=== PATIENT | male | born 1940 | race Caucasian/White ===

== ENCOUNTER 2019-01-15 00:03 | Inpatient (IN) ==
[2019-01-15 01:27] LABS: BASO# 0.09 X1000 (0.0-0.2); BASO% 1.3 % (0.0-0.8); EOS# 0.44 X1000 (0.0-0.7); EOS% 6.1 % (0.0-10.0); HEMATOCRIT 40.9 % (42.0-52.0); HEMOGLOBIN 14.7 g/dL (14.0-18.0); IMM GRAN# 0.02 X1000 (0.0-0.04); IMM GRAN% 0.3 % (0.0-0.5); LYMPH# 2.44 X1000 (1.2-3.4); LYMPH% 33.9 % (20.5-51.1); MCH 32.6 PG (27-31); MCHC 35.9 g/dL (33-37); MCV 90.7 FL (81-99); MONO# 0.79 X1000 (0.11-0.59); MPV 9.2 FL (7.4-10.4); NEUT# 3.41 X1000 (1.4-6.5); NEUT% 47.4 % (42.2-75.2); PLT 228 X1000 (130-400); RBC 4.51 XMIL (4.7-6.1); RDW 13.6 % (11.5-14.5); WBC 7.19 X1000 (4.8-10.8)
[2019-01-15] MEDS ORDERED: CARDIZEM IV ONE (03:10)
[2019-01-15 03:31] LABS: ALBUMIN 4.4 g/dL (3.5-5.0); ALKALINE PHOSPHATASE 77 U/L (32-122); BUN 8 mg/dL (8-22); CK PROFILE 104 U/L (24-204); CREATININE 0.8 mg/dL (0.7-1.2); ESTIMATED GFR > 60; GLUCOSE 100 mg/dL (70-104); GOT 43 U/L (10-34); GPT 28 U/L (10-44); TCO2 25 mmol/L (25-35); TOTAL PROTEIN 7.7 g/dL (6.3-8.3)
[2019-01-15 03:37] LABS: CALCIUM 8.6 mg/dL (8.8-10.2); CHLORIDE 92 mmol/L (98-107); POTASSIUM 4.3 mmol/L (3.5-5.1); SODIUM 135 mmol/L (136-145)
[2019-01-15 03:38] LABS: AGAP 18; COSMO 269
--- NOTE | 2019-01-15 03:52 | PROVIDER DOCUMENTATION ---
This chart was entered by Maria Esther Perez Scribe, acting as scribe for Shonda Moreno MD. HPI-General Adult - General Chief Complaint: Dizziness Stated Complaint: dizzy Time Seen by Provider: 01/15/19 00:40 Source: patient Allergies/Adverse Reactions: Patient Allergies Allergy/AdvReac Type Severity Reaction Status Date / Time No Known Allergies Allergy Verified 01/15/19 00:15 Home Medications: Home Medication List Medication Instructions Recorded Confirmed Last Taken Type Aspirin 325 mg PO DAILY tablet 08/07/18 Unknown Rx - History of Present Illness -Gen Adult Nature of Presenting Problems: 78 yom c/o dizziness when standing. pt has hx of afib and dementia. pt has no other complaints. Review of Systems - Adult - REVIEW OF SYSTEMS - ADULT Constitutional: reports: no symptoms reported Eyes: reports: no symptoms reported Ears, Nose, Mouth & Throat: reports: no symptoms reported Cardiovascular: reports: no symptoms reported Respiratory: reports: no symptoms reported Gastrointestinal: reports: no symptoms reported Genitourinary: reports: no symptoms reported Musculoskeletal: reports: no symptoms reported Integumentary: reports: no symptoms reported Neurological: reports: see HPI, dizziness/vertigo. denies: ataxia, headache/migraines, loss of balance Psychiatric: reports: no symptoms reported Endocrine: reports: no symptoms reported Hematologic/Lymphatic: reports: no symptoms reported Allergic/Immunologic: reports: no symptoms reported All Other Systems: Reviewed and Negative Past History - Adult - PAST MEDICAL HISTORY-ADULT Review of Records: reports: Old Records Reviewed, Nursing Assessment Review, Medications Reviewed, Social history reviewed & non-contributory. Major Childhood Illnesses: reports: denies history Cardiovascular: reports: A-Fib Respiratory: reports: denies history Gastrointestinal: reports: denies history Obstetrical/Gynecological: reports: denies history Genitourinary: reports: denies history Musculoskeletal: reports: denies history Neurological: reports: dementia Endocrine/Immune: reports: denies history Other Conditions: reports: denies history - PRIOR SURGERIES/PROCEDURES Surgical/Procedure History: reports: reviewed, not pertinent - IMMUNIZATION STATUS Childhood Immunizations: See Nurse Assessment Flu Vaccine: See Nurse Assessment - FAMILY HISTORY Family History: reviewed, not pertinent - SOCIAL HISTORY Smoking: cigarettes, less than 1 pack/day Substance Use: alcohol Physical Exam-General - PHYSICAL EXAM-ADULT Initial Vital Signs Reviewed: Yes - CONSTITUTIONAL General Appearance: appears well, alert, no apparent distress - EYES Eyes: PERRL/EOMI, pink conjunctivae - HEAD, EARS, NOSE, MOUTH & THROAT HENMT: normocephalic/atraumatic, moist mucous membranes, normal ENT inspection - NECK Neck: non-tender, full range of motion, supple, normal inspection - RESPIRATORY Respiratory: chest non-tender, lungs clear, normal breath sounds - CARDIOVASCULAR Cardiovascular: normal peripheral pulses, regular rate, rhythm - GASTROINTESTINAL (ABDOMEN) Abdominal Exam: normal bowel sounds, non tender, soft - MUSCULOSKELETAL Back Exam: normal inspection, no CVA tenderness, no vertebral tenderness Extremity: normal range of motion, non-tender, normal inspection Peripheral Pulses: radial (R): 2+, radial (L): 2+ - SKIN Integumentary: normal color, normal turgor, warm/dry - NEUROLOGIC Neurologic: tack puller machine II-XII nml as tested, grossly normal, no motor/sensory deficits - PSYCHIATRIC Psych/Mental Status: normal mood/affect, normal thought content, normal thought process. negative: oriented x 3 (pt is oriented to person and place but not disoriented.) Progress - PLAN OF CARE/RESULTS Progress/Plan/Lab Results: Vital Signs - 8 hr 01/15/19 00:11 01/15/19 01:18 Temperature 98.0 F Pulse Rate 125 H Pulse Rate [Sitting] 113 H Pulse Rate [Standing] 130 H Pulse Rate [Supine] 107 H Respiratory Rate 16 Blood Pressure 121/73 Blood Pressure [Sitting] 123/75 Blood Pressure [Standing] 100/74 Blood Pressure [Supine] 125/92 O2 Sat by Pulse Oximetry 92 L Orders Category Date Time Status Orthostatic Vital Signs NOW Care 01/15/19 00:41 Active CHEST-1 VIEW [RAD] Stat Exams 01/15/19 00:[address] HEAD W/O CONTRAST [CT] Stat Exams 01/15/19 00:42 Ordered CBC WITH ELECTRONIC DIFF [HEME] Stat Lab 01/15/19 01:17 Ordered CK PROFILE [SP CHEM] Stat Lab 01/15/19 01:17 Ordered COMPREHENSIVE METABOLIC PANEL [CHEM] Stat Lab 01/15/19 01:17 Ordered TROPONIN T Stat Lab 01/15/19 01:17 Ordered Result Diagrams: 01/15/19 01:09 01/15/19 01:09 - EKG 1 Time of EKG reading by physician:: 01:10 EKG Read and Signed by:: Shonda Moreno EKG Interpretation (*Must complete 3 of following elements*): Abnormal Rate: 96 Rhythm: afib [place]: normal QRS: normal ST Wave: normal - CONSULTS/PCP/HOSPITALIST Notification #1 *Consult/PCP/Hospitalist*: DrGarcia Time Discussed: 03:50 Consult Disposition: Admit Departure - Departure Date of Disposition Decision: 01/15/19 Time of Disposition Decision: 03:51 DIAGNOSIS: Atrial fibrillation with RVR Disposition: ADMITTED INPATIENT 09 Certified Medical Emergency: Emergent Condition: Stable Referrals and Follow-Ups: None,PCP [Primary Care Provider] - - Critical Care Note This patient required my direct & personal management of CC.: No Attestation - Physician/ MITRA Attestation Patient care was provided by Advanced Practice Provider:: No The physician spent face to face time with patient:: Yes Advanced Practice Provider documentation review:: Supervising physician onsite and consulted in the evaluation and care of this patient. The physician did have a face to face encounter with the patient. This chart was documented by the indicated scribe, (Maria Esther Perez Scribe) and accurately reflects the services I performed and decisions made by me, Shonda Moreno MD, as attested by the provider's signature.
--- NOTE | 2019-01-15 06:47 | Diag Imaging Result Doc PS360 ---
CHEST-1 VIEW - 01/15/2019 INDICATION: dizziness COMPARISON: 08/05/2018 FINDINGS: There is an increasing focal opacity in the right lung base. There is COPD. Heart size and pulmonary vascularity is normal. No pneumothorax or pleural effusion. IMPRESSION: Increasing chronic opacity in the right lung base. Appearance is suspicious. Chest CT is recommended. Electronically signed by Luke Chavez 01/15/2019 6:45 AM
--- NOTE | 2019-01-15 06:52 | Diag Imaging Result Doc PS360 ---
CT HEAD W/O CONTRAST - 01/15/2019 INDICATION: dizziness COMPARISON: 08/06/2018 FINDINGS: There is a very small, low density subdural hemorrhage in the left frontal region. This measures only about 4 mm. This is new from prior. There is some minimal midline shift to the left. Stable cerebral atrophy and rather advanced chronic microvascular disease. There is diffuse sinusitis. The mastoids and middle ears are clear. IMPRESSION: 1. Small low density left frontal subdural hematoma likely subacute to chronic. 2. Diffuse sinusitis. This exam was performed using automated exposure control, adjustment of mA or kV according to patient size, and/or use of iterative reconstruction technique Electronically signed by Luke Cahvez 01/15/2019 6:49 AM
--- NOTE | 2019-01-15 10:48 | Diag Imaging Result Doc PS360 ---
CT THORAX W/CONTRAST - 01/15/2019 INDICATION: Eval susp. area in lung per CXR COMPARISON: Previous chest x-rays FINDINGS: There is mild COPD. No adenopathy. Heart and great vessels are normal. Upper abdominal images are normal. There is widespread bronchiectasis and chronic bronchitis, mainly in the lower lobes bilaterally. There is widespread mainly tree-in-bud nodular infiltrate in the lower lobes particularly in the right lower lobe. Bony structures are intact. 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 Associated chronic bronchiectasis and chronic bronchitis. 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 This exam was performed using automated exposure control, adjustment of mA or kV according to patient size, and/or use of iterative reconstruction technique Electronically signed by Luke Chavez 01/15/2019 10:46 AM
[2019-01-15] MEDS: ASPIRIN PO SCH (11:06)
[2019-01-15] MEDS: CARDIZEM PO SCH ×3 (11:06→21:19)
--- NOTE | 2019-01-15 13:00 | HISTORY AND PHYSICAL ---
PRIMARY CARE PHYSICIAN: None. MEDIA SALES CONSULTANT: Dr. Caballero. CHIEF COMPLAINT: Dizziness when standing. HISTORY OF PRESENTING ILLNESS: This is a 78-year-old male who presents to [facility] ER with , who states that he has had dizziness when standing. Has had increased confusion noted lately. states that approximately 3 days ago, he was found wandering in the road and picked up by police and brought back home. He saw his livestock farmworker about a week ago and is supposed to go Friday for a Holter monitor. When he arrived to the emergency room, he was noted to be in atrial fibrillation with rapid ventricular response at 125. He was given Cardizem 10 mg IV x1 and his rate improved. Currently he is at 98. The patient is unable to really answer any questions appropriately due to his dementia, but his states that he is only on an aspirin daily at this time as far as home medications, so he is being admitted for further evaluation and treatment. PAST MEDICAL HISTORY: Dementia, atrial fibrillation and hepatitis as a child. PAST SURGICAL HISTORY: Facial surgery. SOCIAL HISTORY: He smokes a pack of cigarettes a day, has occasional alcohol on a social basis and denies any illicit drug use. ALLERGIES: He has no known drug allergies. HOME MEDICATIONS: He takes aspirin 325 mg p.o. daily. LABORATORY DATA: White blood cell count of 7.19, hemoglobin 14.7, hematocrit 40.9, platelets 228,000. Sodium 135, potassium 4.3, chloride 92, CO2 25, BUN of 8, creatinine 0.8, glucose of 100. Cardiac enzymes were negative. IMAGING: Head CT showed a small low-density left frontal subdural hematoma likely subacute to chronic, and diffuse sinusitis. Chest x-ray showed an increasing chronic opacity in the right lung base. Appearance is suspicious and chest CT is recommended. REVIEW OF SYSTEMS: Patient unable to answer, but after talking with the , he has had increased confusion, dizziness. Denied any chest pain, coughing, shortness of breath, abdominal pain, constipation, diarrhea, or burning or hurting with urination. PHYSICAL EXAMINATION: VITAL SIGNS: On arrival, he has a temperature of 98 degrees, pulse 125, respirations 16, blood pressure 121/73, saturating 92% on room air. Currently, heart rate is down to 98 in atrial fibrillation. GENERAL: This is a 78-year-old male, lying in the bed, unable to answer questions appropriately due to confusion. Did speak with patient's and reviewed medical records to obtain information. HEENT: Normocephalic, atraumatic. Normal ENT inspection. Oropharynx and nares are clear. EYES: Pupils are equal, round, reactive to light and accommodation. Extraocular movements are intact. NECK: Normal inspection, normal range of motion. LUNGS: Clear to auscultation bilaterally with equal lung expansion and chest wall movement. HEART: With irregular rate and rhythm, but no murmurs, rubs, or gallops. ABDOMEN: Soft, nontender, nondistended. Bowel sounds are present x4 quadrants. MUSCULOSKELETAL: 5/5 strength x4 extremities. NEUROLOGICAL: The cranial nerves 2-12 appear grossly intact. ASSESSMENT: 1. Atrial fibrillation with rapid ventricular response. 2. Dizziness. 3. A right lung base chronic-appearing opacity. 4. Tobacco abuse. PLAN: He is being admitted to the medical unit, placed on telemetry, O2 per protocol. We are going to obtain a CT of the thorax with contrast. Start him on Cardizem 30 mg p.o. q.6 hours. Continue his aspirin 325 mg p.o. daily. After speaking with the , she would like to see if he could have rehab, so we will consult Coordinate Measuring Equipment Operator for that. His last echocardiogram was on 08/05/2018, showed an ejection fraction of 69% with normal left ventricular function. We are going to recheck that today, and further orders after being seen by attending. Dictated by LILLI Serna for Don Montejo MD Addendum: Patient seen and examined by myself. Agree with LILLI note. It reflects my assessment and plan. Patient is being admitted to hospital for atrial fibrillation with RVR that has been initially controlled in the ER. Will continue with Cardizem PO and monitor patient closely. Because patient has became very week will consult SW to send him to rehab. cc: LILLI Serna MD [facility]
--- NOTE | 2019-01-15 15:30 | ECHO REPORT ---
ORDER DATE: 01/15/2019 INTERPRETING PHYSICIAN: Sharif Maldonado MD PROCEDURE: 2D echocardiogram. ECHOCARDIOGRAPHIC MEASUREMENTS: 1. Interventricular septum 0.9 cm. 2. Left ventricular posterior wall 0.9 cm. 3. Diastolic diameter 4.7 cm. 4. Left atrium 3.2 cm. 5. Aorta 3.8 cm. SUMMARY OF THE 2-DIMENSIONAL IMAGIN. The aortic valve leaflets were sclerosed, trileaflet, opening normally. 2. Pulmonic valve was normal. There is trace pulmonary regurgitation. 3. Mitral valve leaflets were normal. 4. Tricuspid valve was normal. 5. There is mild mitral regurgitation. 6. Mild tricuspid regurgitation. 7. Peak velocity across the tricuspid valve was 2.5 m/sec. 8. Peak velocity across the aortic valve less than 2 m/sec. 9. There is no aortic stenosis or regurgitation. 10. Normal left ventricular cavity size. 11. Estimated ejection fraction of 60%. 12. There is no pericardial effusion or obvious intracardiac mass or thrombus seen. cc: MD Roma Chan CRNP
[2019-01-15] MEDS ORDERED: LOPRESSOR IV PRN (23:25)
[2019-01-16] MEDS: CARDIZEM PO SCH ×4 (04:36→23:17)
[2019-01-16] MEDS: ASPIRIN PO SCH ×2 (05:20→11:46)
[2019-01-16 08:07] LABS: BASO# 0.05 X1000 (0.0-0.2); BASO% 0.6 % (0.0-0.8); EOS# 0.24 X1000 (0.0-0.7); EOS% 2.8 % (0.0-10.0); HEMATOCRIT 42.8 % (42.0-52.0); HEMOGLOBIN 14.9 g/dL (14.0-18.0); IMM GRAN# 0.01 X1000 (0.0-0.04); IMM GRAN% 0.1 % (0.0-0.5); LYMPH# 1.81 X1000 (1.2-3.4); MCHC 34.8 g/dL (33-37); MCV 91.8 FL (81-99); MONO# 0.99 X1000 (0.11-0.59); MONO% 11.5 % (1.7-9.3); MPV 9.5 FL (7.4-10.4); NEUT# 5.53 X1000 (1.4-6.5); PLT 211 X1000 (130-400); RBC 4.66 XMIL (4.7-6.1); RDW 13.7 % (11.5-14.5); WBC 8.63 X1000 (4.8-10.8)
[2019-01-16 08:30] LABS: AGAP 11; BUN 9 mg/dL (8-22); CHLORIDE 94 mmol/L (98-107); COSMO 273; CREATININE 0.7 mg/dL (0.7-1.2); ESTIMATED GFR > 60; GLUCOSE 138 mg/dL (70-104); POTASSIUM 4.2 mmol/L (3.5-5.1); SODIUM 136 mmol/L (136-145); TCO2 31 mmol/L (25-35)
--- NOTE | 2019-01-16 13:53 | PROGRESS NOTE ---
DATE: 01/16/2019 SUBJECTIVE: Patient reports no palpitations, no chest pain, no chest discomfort. OBJECTIVE: Vitals: Temperature 97.8, heart rate 60, respiratory rate 18, blood pressure 156/80, O2 saturation 97% on 2 L nasal cannula. General: This is a 78-year-old chronically ill-appearing male lying in bed in no acute distress. Cardiovascular: S1, S2 heard. No murmurs, gallops, or rubs. Regular rate and rhythm. Respiratory: Clear bilaterally to auscultation. No work of breathing or using accessory muscles. Abdomen: Soft, nontender to palpation. Bowel sounds present. No organomegaly. Extremities: No clubbing, cyanosis, or edema. Peripheral pulses present in both legs. Neurological: Patient alert, oriented x3. Moves 4 extremities. LABORATORY DATA: Reviewed. ASSESSMENT AND PLAN: 1. Atrial fibrillation with rapid ventricular response. Patient is stable right now. Currently he is receiving 60 mg of Cardizem p.o. q.8 hours and heart rate is definitely much better controlled. Patient at admission was feeling dizzy. At this time patient is more stable. Will continue with the same management. 2. Tobacco abuse aware. 3. Physical deconditioning. Patient agreed to go to physical therapy. Will see when we have a rehab bed for him. cc: Don Montejo MD
[2019-01-16] MEDS ORDERED: ATIVAN IV PRN (20:26)
[2019-01-16] MEDS: LIBRIUM PO SCH (23:26)
[2019-01-16] MEDS: LIORESAL PO SCH (23:28)
[2019-01-17] MEDS: LIORESAL PO SCH ×3 (04:03→20:35)
[2019-01-17] MEDS: CARDIZEM PO SCH (04:03)
[2019-01-17] MEDS: LIBRIUM PO SCH ×3 (04:03→20:35)
[2019-01-17 07:31] LABS: BASO# 0.07 X1000 (0.0-0.2); BASO% 0.9 % (0.0-0.8); EOS# 0.43 X1000 (0.0-0.7); EOS% 5.4 % (0.0-10.0); HEMATOCRIT 38.9 % (42.0-52.0); HEMOGLOBIN 13.2 g/dL (14.0-18.0); IMM GRAN# 0.02 X1000 (0.0-0.04); IMM GRAN% 0.2 % (0.0-0.5); LYMPH# 2.02 X1000 (1.2-3.4); LYMPH% 25.2 % (20.5-51.1); MCH 31.7 PG (27-31); MCHC 33.9 g/dL (33-37); MCV 93.5 FL (81-99); MONO# 0.96 X1000 (0.11-0.59); MPV 9.8 FL (7.4-10.4); NEUT# 4.53 X1000 (1.4-6.5); NEUT% 56.3 % (42.2-75.2); PLT 188 X1000 (130-400); RBC 4.16 XMIL (4.7-6.1); RDW 13.7 % (11.5-14.5); WBC 8.03 X1000 (4.8-10.8)
[2019-01-17 07:49] LABS: AGAP 10; BUN 9 mg/dL (8-22); CALCIUM 8.6 mg/dL (8.8-10.2); CHLORIDE 99 mmol/L (98-107); COSMO 275; CREATININE 0.7 mg/dL (0.7-1.2); ESTIMATED GFR > 60; GLUCOSE 111 mg/dL (70-104); POTASSIUM 3.3 mmol/L (3.5-5.1); SODIUM 138 mmol/L (136-145); TCO2 29 mmol/L (25-35)
[2019-01-17] MEDS ORDERED: KLOR-CON PO ONE (09:03)
[2019-01-17] MEDS: CARDIZEM CD PO SCH (10:10)
--- NOTE | 2019-01-17 12:10 | PROGRESS NOTE ---
DATE: 01/17/2019 SUBJECTIVE: Patient reports feeling fine. No complaints noted at this time. OBJECTIVE: Vital Signs: Temperature 98.0 degrees, heart rate is 52, respiratory rate 15, blood pressure 123/66, O2 saturation 95% on room air. General Examination: This is a chronically ill- appearing, 78-year-old, male lying in bed, in no acute distress. Cardiovascular Examination: S1 and S2 heard. No murmurs, gallops, or rubs. Regular rate and rhythm. Respiratory Examination: Clear bilaterally to auscultation. No work of breathing or using accessory muscles. Abdomen: Soft, nontender to palpation. Bowel sounds present. No organomegaly. Extremities: No clubbing, cyanosis, or edema. Peripheral pulses present in both legs. Neurological Examination: The patient is alert and oriented x3. Moves 4 extremities. Laboratory Data: Reviewed. ASSESSMENT AND PLAN: 1. Atrial fibrillation with rapid ventricular response. At this point, the patient has been receiving Cardizem by mouth 60 mg every 8 hours. The heart rate has been well controlled. At this time, I think we are going to change to Cardizem CD 180 by mouth daily. We will continue with the same management. He was dizzy on admission but definitely he is more stable right now. 2. Tobacco abuse. Aware. 3. Alcohol abuse. Yesterday, I was called by the nurse that this patient may start having some symptoms of withdrawal. We started him on baclofen 20 mg by mouth every 8 hours and also Librium 25 mg by mouth every 8 hours as well. This patient is doing better now. We will continue to monitor. 4. Physical deconditioning. Physical therapy working with this patient. Family wanted him to be sent to rehab facility so geriatric social work professor has been consulted. We will see when we get a bed for him. cc: Don Montejo MD
[2019-01-17] MEDS: ELIQUIS PO SCH (20:35)
[2019-01-17] MEDS ORDERED: LIORESAL PO SCH (21:00)
[2019-01-17] MEDS ORDERED: ELIQUIS PO SCH (21:00)
[2019-01-18] MEDS: LIORESAL PO SCH (04:13)
[2019-01-18] MEDS: LIBRIUM PO SCH ×2 (04:13→18:37)
[2019-01-18 07:30] LABS: BASO# 0.05 X1000 (0.0-0.2); BASO% 0.6 % (0.0-0.8); EOS# 0.52 X1000 (0.0-0.7); EOS% 6.5 % (0.0-10.0); HEMATOCRIT 39.9 % (42.0-52.0); HEMOGLOBIN 13.5 g/dL (14.0-18.0); IMM GRAN# 0.03 X1000 (0.0-0.04); IMM GRAN% 0.4 % (0.0-0.5); LYMPH# 1.99 X1000 (1.2-3.4); MCH 32.3 PG (27-31); MCHC 33.8 g/dL (33-37); MCV 95.5 FL (81-99); MONO% 12.6 % (1.7-9.3); NEUT# 4.36 X1000 (1.4-6.5); NEUT% 54.9 % (42.2-75.2); PLT 183 X1000 (130-400); RBC 4.18 XMIL (4.7-6.1); RDW 13.7 % (11.5-14.5); WBC 7.95 X1000 (4.8-10.8)
[2019-01-18 07:49] LABS: AGAP 9; BUN 11 mg/dL (8-22); CALCIUM 8.8 mg/dL (8.8-10.2); CHLORIDE 103 mmol/L (98-107); COSMO 283; CREATININE 0.9 mg/dL (0.7-1.2); ESTIMATED GFR > 60; GLUCOSE 113 mg/dL (70-104); POTASSIUM 3.8 mmol/L (3.5-5.1); SODIUM 142 mmol/L (136-145); TCO2 30 mmol/L (25-35)
[2019-01-18] MEDS: ELIQUIS PO SCH ×2 (09:34→21:15)
[2019-01-18] MEDS: CARDIZEM CD PO SCH (09:35)
[2019-01-18] MEDS ORDERED: LIORESAL PO SCH (13:00)
--- NOTE | 2019-01-18 14:35 | EKG Report ---
Test Performed on : 01/18/2019 2:09:58 PM Test Reason : STAT Blood Pressure : / mmHG Vent. Rate : 058 BPM Atrial Rate : 058 BPM P-R Int : 136 ms QRS Dur : 086 ms QT Int : 414 ms P-R-T Axes : 061 071 061 degrees QTc Int : 406 ms Sinus bradycardia. with premature atrial complexes. Otherwise normal ECG When compared with ECG of 15-JAN-2019 01:03, (Unconfirmed) Sinus rhythm. has replaced Atrial fibrillation. Vent. rate has decreased BY 38 BPM Nonspecific T wave abnormality no longer evident in Inferior leads Confirmed by Brigido Fulton MD ([id number]) on 01/24/2019 10:19:13 AM
[2019-01-18] MEDS ORDERED: LIBRIUM PO SCH (17:00)
--- NOTE | 2019-01-18 20:48 | PROGRESS NOTE ---
DATE: 01/18/2019 SUBJECTIVE: Patient himself has no complaints. States that yesterday he was up walking about, doing well. States overall he is feeling better. However, today he has been a little more drowsy. He has had more difficulty ambulating. He has required more help to ambulate today than he has in the past. PHYSICAL EXAMINATION: Vital Signs: Reviewed. Temperature 98.4 degrees, pulse 63, respiratory 18, BP 127/67. General: Patient is in no current distress. He is more sleepy than usual. HEENT: Normocephalic, atraumatic. [place]. Neck: Supple. Cardiovascular: Regular rate. Chest: Clear, nonlabored. Abdomen: Soft, nondistended. Extremities: Moves all extremities. ASSESSMENT: 1. Generalized fatigue. Seems worse today. This very well may be due to Librium or baclofen. At this point, we will stop the baclofen. 2. Chronic tobacco abuse. 3. Chronic alcohol use. PLAN: He certainly may have been going into some withdrawal. His heart rates were elevated. Currently, they are improved. Therefore, we will stop his baclofen. We will decrease his Librium and will follow. Assuming that he improves, he can be discharged to rehab tomorrow. cc: Nam Clay MD
[2019-01-19] MEDS: LIBRIUM PO SCH (06:02)
[2019-01-19 07:47] VITALS: BP 136/54
[2019-01-19] MEDS ORDERED: CARDIZEM CD PO SCH (09:00)
[2019-01-19] MEDS: ELIQUIS PO SCH (09:22)
--- NOTE | 2019-01-19 10:46 | DISCHARGE SUMMARY ---
ADMISSION DATE: 01/15/2019 DISCHARGE DATE: 01/19/2019 CONSULTATIONS: None. PERTINENT PROCEDURES: Head CT: Small low-density left frontal subdural hematoma, likely subacute to chronic, diffuse sinusitis. 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 Echocardiogram shows an EF of 60%. DISCHARGE DIAGNOSES: 1. Generalized fatigue, believed to be secondary to combination of Librium and baclofen. His baclofen has stopped, and his Librium was tapered to off with improvement. The patient has been working with Physical Therapy with a walker. 2. Chronic tobacco abuse. The patient and have been educated on smoking cessation as well as the means to quit. 3. Chronic alcohol use with some mild withdrawal. Again, the patient has been taken off his baclofen, and decreased off his Librium with some improvement. He has been working with Physical Therapy. 4. Atrial fibrillation with rapid ventricular response. The patient was continued on his home Cardizem, and initiated on low-dose Eliquis. He will need to follow up with his thread laster. 5. Small low-density left frontal subdural hematoma, likely subacute to chronic, measures about 4 mm. This was a new finding. Given this finding we havd stopped Eliquis and continue asa only. 6. Physical deconditioning. Again, the patient has been working with Physical Therapy, walking in the hallways with a walker. 7. Dementia. Aware. HOSPITAL COURSE: Briefly, Mr. Cárdenas is a 78-year-old male who presented to the [facility] ER with his with complaints of dizziness when standing, as well as an increase in confusion. Three days prior to his admission, he was found wandering in the road, and picked up by police, and brought back home. He saw his thread laster a week prior, and was supposed to go for a Holter monitor. When he arrived to the ED, he was noted to be in atrial fibrillation with RVR at 125. He was given IV Cardizem bolus, and his rate improved. The patient was not really able to answer any questions secondary to his dementia. His states that he only takes aspirin as far as home medications. He was admitted to the hospital for atrial fibrillation with RVR, dizziness, and a right lung base chronic-appearing opacity. He did go into mild alcohol withdrawal, and was initiated on Librium and baclofen, and tapered off. After stopping his baclofen and decreasing his Librium, he has been working with Physical Therapy for the last 3 days, using a walker, and he will be discharged to rehab. DISCHARGE VITAL SIGNS: Temperature is 97.5 degrees, heart rate 55, respirations 18, blood pressure 136/54, O2 is 98% on room air. DISCHARGE DIET: Healthy heart. DISCHARGE MEDICATIONS: 1. Cardizem CD 120 mg p.o. daily. 2. Aspirin 81 mg p.o. daily. FOLLOWUP: Mr. Cárdenas is being discharged to rehab, where he will continue with his physical therapy. He will need to follow up closely with his thread laster as he has been initiated on Eliquis and Cardizem. He will also need to follow up with a primary care provider of his choosing to the list that has been provided to him. He can return to the ED or call 911 for any worsening of symptoms. Dictated by LILLI Graham for Nam Clay MD cc: Nam Clay MD MTDD
--- NOTE | 2019-01-20 05:35 | DISCHARGE SUMMARY ---
ADMISSION DATE: 01/15/2019 DISCHARGE DATE: 01/19/2019 ADDENDUM: Patient seen and examined by myself. Full note dictated and discussed with nurse practitioner. On discharge, patient is awake, alert. He is in no distress. Overall, he is feeling better. He was told of having an abnormal CT scan and that he should consider a biopsy. He declined this. He has recently had a probable acute or subacute intracranial bleed. He has a known history of atrial fibrillation but given his intracranial bleed, we certainly do not need to place him on Eliquis, given that he is a chronic alcoholic with frequent falls and has had a recent bleed. Otherwise, we will continue to follow. We will transfer him to rehab. cc: Nam Clay MD
[2019-01-20] MEDS ORDERED: LIBRIUM PO SCH (09:00)
== END 2019-01-19 13:48 | DRG 308 ==
LOC: P.ED 00:03 → SUATTDRO 04:12 → P.MEDSURG 04:12
PROVIDERS: ATTEND Family Medicine
CPT/HCPCS: 70450; 71010; 71045; 71260; 80048; 80053; 82550; 82948; 84484; 85025; 93005; 93010; 93306; 94761; 96374; 97163; 97530; 99285; A9270; Q9967; XXXXX